=== PATIENT | female | born 1955 | race Caucasian/White ===

== ENCOUNTER → 2018-11-12 | Outpatient (CLI) | payer OTHER ==
[~2018-11-12] MED LIST: TALTZ AUTO80 MG/1 M1 SQ; THYR60 PO
== END | disposition home or self-care (01) ==
LOC: PLD 10:02 → LAB SHORT 10:02
DX: L81.4 Other melanin hyperpigmentation (principal)
CPT/HCPCS: 88305; 88342

== ENCOUNTER 2025-03-18 11:02 | Day surgery (SDC) | payer OTHER ==
[~2025-03-18] VITALS: Ht 160 cm; Wt 76.5 kg
[2025-03-18] MEDS ORDERED: LOSA50 (11:17)
--- NOTE | 2025-03-18 13:00 | NUR ---
03/18/25 1300 Graciela Booker 3ML NORMAL SALINE USED TO ELEVATE POLYP
[2025-03-18 13:09] VITALS: BP 131/73
== END 2025-03-18 13:25 | disposition home or self-care (01) ==
LOC: ORSCSDS 11:02
PROVIDERS: Specialist
PROC: 0DBH8ZX Excision of Cecum, Via Natural or Artificial Opening Endoscopic, Diagnostic (ICD-10-PCS; principal; 2025-03-18 12:45)
PROC: 0DBP8ZX Excision of Rectum, Via Natural or Artificial Opening Endoscopic, Diagnostic (ICD-10-PCS; principal; 2025-03-18 12:45)
PROC: 0DBN8ZX Excision of Sigmoid Colon, Via Natural or Artificial Opening Endoscopic, Diagnostic (ICD-10-PCS; principal; 2025-03-18 12:45)
PROC: 0DBL8ZX Excision of Transverse Colon, Via Natural or Artificial Opening Endoscopic, Diagnostic (ICD-10-PCS; principal; 2025-03-18 12:45)
DX: Z12.11 Encounter for screening for malignant neoplasm of colon (principal); D12.0 Benign neoplasm of cecum; D12.5 Benign neoplasm of sigmoid colon; K63.5 Polyp of colon; K62.1 Rectal polyp; K64.8 Other hemorrhoids; K57.30 Diverticulosis of large intestine without perforation or abscess without bleeding; Z86.0101 Personal history of adenomatous and serrated colon polyps; Z83.719 Family history of colon polyps, unspecified; I10 Essential (primary) hypertension; E03.9 Hypothyroidism, unspecified; L40.9 Psoriasis, unspecified; Z79.899 Other long term (current) drug therapy; F17.210 Nicotine dependence, cigarettes, uncomplicated
CPT/HCPCS: 88305; J2704; J7120